=== PATIENT | female | born 1960 | race Caucasian/White ===

== ENCOUNTER 2020-09-15 10:43 | Emergency (ER) | payer MEDICAID ==
[~2020-09-15] VITALS: Ht 160 cm; Wt 59.9 kg
[2020-09-15 11:08] LABS: BASOPHILS # (AUTO) 0.1 /CMM (0.0-0.2); BASOPHILS % (AUTO) 0.8 % (0.0-2.0); EOSINOPHILS % (AUTO) 3.1 % (0.0-6.0); HEMATOCRIT 35 % (33-45); HEMOGLOBIN 11.9 g/dL (11.5-14.8); LYMPHOCYTES # (AUTO) 3.3 /CMM (0.8-4.8); LYMPHOCYTES % (AUTO) 45.5 % (20.0-44.0); MEAN CORPUSCULAR HGB CONC 35 g/dl (31.0-36.0); MEAN CORPUSCULAR VOLUME 94 fL (82-100); MONOCYTES # (AUTO) 0.5 /CMM (0.1-1.30); MONOCYTES % (AUTO) 6.7 % (2.0-12.0); NEUTROPHILS # (AUTO) 3.2 /CMM (1.8-8.9); NEUTROPHILS % (AUTO) 43.9 % (43.0-81.0); PLATELET COUNT (AUTO) 314 /CMM (150-450); RED BLOOD CELL COUNT(AUTO) 3.69 MIL/uL (4.0-5.2); WHITE BLOOD COUNT (AUTO) 7.4 K/uL (4.3-11.0)
[2020-09-15 11:24] LABS: CALCIUM, SERUM 8.5 mg/dL (8.5-10.1); CARBON DIOXIDE 25 mmol/L (21-32); CHLORIDE 102 mmol/L (98-107); CREATININE 0.7 mg/dL (0.6-1.3); GLUCOSE 98 mg/dL (74-106); POTASSIUM 3.8 mmol/L (3.5-5.1); SODIUM SERUM 139 mmol/L (136-145); UREA NITROGEN, BLOOD 19 mg/dL (7-18)
[2020-09-15 11:29] LABS: ACETAMINOPHEN 9 ug/ml (10-30); ALANINE AMINOTRANSFERASE 63 U/L (12-78); ALBUMIN 3.7 g/dL (3.4-5.0); ALCOHOL, BLOOD < 3 mg/dL (0-0); ALKALINE PHOSPHATASE 76 U/L (46-116); ASPARTATE AMINOTRANSFERASE 43 U/L (15-37); BILIRUBIN,DIRECT 0.1 mg/dL (0.0-0.2); BILIRUBIN,TOTAL 0.4 mg/dL (0.2-1.0); TOTAL PROTEIN, SERUM 7.4 g/dL (6.4-8.2)
[2020-09-15 11:39] LABS: BILIRUBIN,URINE Negative (NEGATIVE); COLOR,URINE YELLOW (YELLOW); LEUKOCYTE ESTERASE ,URINE Negative (NEGATIVE); NITRITE, URINE Negative (NEGATIVE); PH,URINE 5.5 (5.0-8.0); PROTEIN,URINE Negative (NEGATIVE); UGLUCOSE Negative (NEGATIVE); UROBILINOGEN,URINE 0.2 EU/dL (0.2)
[2020-09-15 11:53] LABS: BACTERIA,URINE Few /HPF (None Seen); RBC,URINE 0-2 /HPF (0-2); SQUAMOUS EPITHELIAL CELL,UR Few /HPF (None Seen)
[2020-09-15 11:54] LABS: WBC,URINE 0-3 /HPF (0-3)
--- NOTE | 2020-09-15 12:22 | NUR ---
[facility], called 911 from her car- c/o severe anxiety and depression. Pt also has thoughts of harming herself but no plan. Pt AAOx4, vss. Denies cp, sob, dizziness, n/v at this time. Pt seen and eval'd by Dr. De León. Sitgabriela at bedside and will cont to monitor.
--- NOTE | 2020-09-15 12:52 | NUR ---
7TH GRADE TEACHER AT FOR EVAL.
--- NOTE | 2020-09-15 13:45 | NUR ---
SS Consult : SS Consult requested for SI w/no plan. The pt. is a 59-year old female who was BIBRA after she called 911 from her vehicle stating she was depressed & anxious, per EMR. Per MD note pt. stated she wants to hurt herself. SW met with pt. bedside and pt. was receptive. Pt. is alert & oriented. The pt. appears well-groomed and makes appropriate eye contact. Pt. presents with anxious affect & tangential speech. The pt. stated she resides at [[address] [place], [place] [id number]; [phone]] with her boyfriend and 2 roommates inside the house. Pt. stated another male resides outside in an encampment. SW explored pt.'s SI. Pt. denies current SI to this SW. Pt stated she fractured her skull 20 years ago and which causes her to have has "horrible, vivid dreams". Per pt. she woke up this morning after having a "bad dream" and she fought with her boyfriend. Per pt. that triggered the SI today. Patient stated "I wish I wasn't alive, but I wouldn't kill myself". DEBBIE explored pt.'s mental health Hx. Pt. stated she just began seeing an outpatient psychiatrist and is taking antidepressants. Pt. could not provide psychiatrist phone number or name of antidepressants. Pt. stated that the last time she attempted to commit suicide was about 20 years ago. Pt. denies past psychiatric hospitalization. Per pt. she has suffered from depression her entire life. The pt. denies current HI & denies hallucinations. Pt. with fair insight and poor judgement. DEBBIE explored pt.'s drug use. Pt. stated she uses meth 2x/day. Pt. stated, "I use only because my boyfriend uses". DEBBIE offered pt. voluntary psychiatric hospitalization for stabilization and medication management. Pt. refused stating, "I do not feel suicidal anymore and I want to go home". DEBBIE discussed case with charge nurse, Santy. Dr. De León requesting crisis evaluation for this Pt. Plan: DEBBIE placed drug addiction and mental health resources in the pt.'s discharge packet. DEBBIE called abrading machine tender, Art [phone] and discussed pt. Per Art, he will come assess the pt. SW placed the following resources in pt.'s discharge packet: Substance Abuse resources provided included: [facility] Substance Abuse Self-Helpline ([facility]) ; [facility] [address] [facility]. [place] [address] ; [facility] [address] [facility] [address] ; [facility] [address] [facility] [address] ; [facility] [address] [facility] [id number] ; [facility] [address] [facility] [address] ; [facility] [address] [facility] [id number] ; [facility] Substance Abuse Helpline([facility] ; [facility] ; [facility]; [facility] [place]; [facility] [place]; [facility] [place]; [facility] [place]; [facility] [place]; Alcoholics Anonymous -[facility]; [facility]-Jte[facility] ; Marijuana Anonymous [facility]; Narcotics Anonymous www.na.org; Mental Health resources provided: [facility] [address] [facility] [place] [address] ; [facility] [address] [facility] [address], [place] [address] ; [facility] [address] [place], [place] [phone] ; [facility] [place], [place] [id number] Healthcare Clinics: [facility] [address] [facility] [place]. [place] ; [facility] [address] [facility] [address] [place] [address]; [facility] [address] [place] [address] [phone]
--- NOTE | 2020-09-15 13:56 | NUR ---
ART PARATRANSIT DRIVER AT FOR EVAL.
[2020-09-15 14:24] VITALS: BP 132/76
--- NOTE | 2020-09-15 14:24 | NUR ---
Patient discharged to home in stable condition. Written and verbal after care instructions given. Patient verbalizes understanding of instruction.
== END 2020-09-15 14:25 | disposition home or self-care (01) ==
LOC: ER 10:48
DX: F32.9 Major depressive disorder, single episode, unspecified (principal); F41.9 Anxiety disorder, unspecified
CPT/HCPCS: 36415; 80048-TC; 80076-TC; 81001; 85025-TC; G0480